=== PATIENT | male | born 1955 | race Caucasian/White ===

== ENCOUNTER 2020-12-10 21:19 | Inpatient (IN) | payer MEDICARE, OTHER ==
[~2020-12-10] VITALS: Ht 172.7 cm; Wt 59.9 kg
[2020-12-10] MEDS ORDERED: FAMO20TA8 PO (21:51)
[2020-12-10] MEDS ORDERED: ARIP5TAB10 PO (21:51)
[2020-12-10] MEDS ORDERED: GABA-532 PO (21:51)
[2020-12-10] MEDS ORDERED: TRAZ-182 PO (21:51)
[2020-12-10] MEDS ORDERED: LORAZEPAM 0.5 MG TABLET PO ONE (22:15)
[2020-12-10] MEDS ORDERED: LORAZEPAM 0.5 MG TABLET ONE (23:36)
[2020-12-11] MEDS ORDERED: MAGNESIUM HYDROXIDE 30 ML LIQUID UDC PO PRN (00:15)
[2020-12-11] MEDS ORDERED: MAG HYDROX/AL HYDROX/SIMETH 30 ML LIQUID UDC PO PRN (00:15)
[2020-12-11] MEDS ORDERED: BLOOD SUGAR DIAGNOSTIC 1 EACH STRIP VI ONE (00:15)
[2020-12-11] MEDS: TEMAZEPAM 7.5 MG CAPSULE PO PRN (00:59)
[2020-12-11] MEDS: CLONAZEPAM 0.5 MG TABLET PO PRN ×4 (00:59→21:42)
[2020-12-11 03:44] LABS: *BILIRUBIN,URIN NEGATIVE (NEGATIVE); *BLOOD, URINE NEGATIVE (NEGATIVE); *CLARITY,URINE CLEAR (CLEAR); *COLOR,URINE YELLOW (YELLOW); *KETONES,URINE NEGATIVE (NEGATIVE); *UROBILINOGEN,URINE 0.2 E.U./dl (NORMAL); LEUKOCYTE ESTERASE ,URINE NEGATIVE (NEGATIVE); NITRITE, URINE NEGATIVE (NEGATIVE); PH,URINE 5.5 (5.0-8.0); UGLUCOSE NEGATIVE (NEGATIVE)
[2020-12-11 07:30] VITALS: BP 107/73
[2020-12-11] MEDS: FAMOTIDINE 20 MG TABLET PO SCH ×2 (08:04→20:50)
[2020-12-11] MEDS: NICOTINE 21 MG/24HR PATCH TD SCH (08:04)
[2020-12-11] MEDS: GABAPENTIN 100 MG CAPSULE PO SCH ×3 (09:59→16:24)
[2020-12-11] MEDS: ARIPIPRAZOLE 5 MG TABLET PO SCH ×2 (10:42→16:25)
[2020-12-11] MEDS: DULOXETINE 30 MG CAPSULE.DR PO SCH (10:42)
[2020-12-11 12:08] VITALS: BP 113/70
[2020-12-11] MEDS: ACETAMINOPHEN 325 MG TABLET PO PRN (12:53)
[2020-12-11 16:00] VITALS: BP 101/64
[2020-12-11 20:00] VITALS: BP 99/68
[2020-12-11] MEDS: TRAZODONE 50 MG TABLET PO SCH (20:50)
[2020-12-12] MEDS: CLONAZEPAM 0.5 MG TABLET PO PRN (05:42)
[2020-12-12 07:30] VITALS: BP 143/81
[2020-12-12] MEDS: ARIPIPRAZOLE 5 MG TABLET PO SCH ×2 (08:43→16:02)
[2020-12-12] MEDS: GABAPENTIN 100 MG CAPSULE PO SCH ×3 (08:43→16:02)
[2020-12-12] MEDS: NICOTINE 21 MG/24HR PATCH TD SCH (08:43)
[2020-12-12] MEDS: FAMOTIDINE 20 MG TABLET PO SCH ×2 (08:43→21:57)
[2020-12-12 09:04] LABS: BILIRUBIN,TOTAL 0.3 mg/dL (0.2-1.0); CREATININE 0.8 mg/dL (0.6-1.3); POTASSIUM 3.8 mmol/L (3.5-5.1); TOTAL PROTEIN, SERUM 9.1 g/dL (6.4-8.2)
[2020-12-12] MEDS: DULOXETINE 30 MG CAPSULE.DR PO SCH (09:18)
[2020-12-12] MEDS: METHADONE HCL 10 MG TABLET PO SCH (10:25)
[2020-12-12 16:00] VITALS: BP 97/58
[2020-12-12 20:00] VITALS: BP 94/63
[2020-12-12] MEDS: TRAZODONE 50 MG TABLET PO SCH (21:57)
[2020-12-13] MEDS: CLONAZEPAM 0.5 MG TABLET PO PRN ×3 (00:23→19:48)
[2020-12-13 08:09] LABS: HEMATOCRIT 36.5 % (36.7-47.1); MEAN CORPUSCULAR HEMOGLOBIN 28.8 uug (23.8-33.4); MEAN CORPUSCULAR VOLUME 87.3 fL (73.0-96.2); PLATELET COUNT (AUTO) 447 K/uL (152-348)
[2020-12-13] MEDS: GABAPENTIN 100 MG CAPSULE PO SCH ×3 (08:22→17:02)
[2020-12-13] MEDS: ARIPIPRAZOLE 5 MG TABLET PO SCH ×2 (08:22→17:02)
[2020-12-13] MEDS: METHADONE HCL 10 MG TABLET PO SCH (08:26)
[2020-12-13] MEDS: FAMOTIDINE 20 MG TABLET PO SCH ×2 (08:26→20:03)
[2020-12-13 08:29] VITALS: BP 124/75
[2020-12-13 08:32] LABS: THYROID STIMULATING HORMONE 2.066 mIU/mL (0.358-3.740)
[2020-12-13] MEDS: NICOTINE 21 MG/24HR PATCH TD SCH (08:33)
[2020-12-13] MEDS ORDERED: DULOXETINE 30 MG CAPSULE.DR PO SCH (09:00)
[2020-12-13 09:05] LABS: BILIRUBIN,TOTAL 0.2 mg/dL (0.2-1.0); CREATININE 0.9 mg/dL (0.6-1.3); MAGNESIUM 2.1 mg/dL (1.8-2.4); PHOSPHOROUS 4.7 mg/dL (2.5-4.9); POTASSIUM 4.2 mmol/L (3.5-5.1); TOTAL PROTEIN, SERUM 8.5 g/dL (6.4-8.2)
[2020-12-13] MEDS: DULOXETINE 20 MG CAPSULE.DR PO SCH (09:27)
[2020-12-13 16:13] VITALS: BP 119/76
[2020-12-13] MEDS: ENSURE ENLIVE (VAN) 240 ML LIQUID PO SCH (17:00)
[2020-12-13 20:00] VITALS: BP 107/68
[2020-12-13] MEDS: TRAZODONE 50 MG TABLET PO SCH (20:03)
[2020-12-14 07:30] VITALS: BP 92/54
[2020-12-14] MEDS: NICOTINE 21 MG/24HR PATCH TD SCH (08:03)
[2020-12-14] MEDS: METHADONE HCL 10 MG TABLET PO SCH (08:05)
[2020-12-14] MEDS: DULOXETINE 20 MG CAPSULE.DR PO SCH (08:07)
[2020-12-14] MEDS: GABAPENTIN 100 MG CAPSULE PO SCH ×3 (08:07→16:42)
[2020-12-14] MEDS: ARIPIPRAZOLE 5 MG TABLET PO SCH ×2 (08:07→16:42)
[2020-12-14] MEDS: FAMOTIDINE 20 MG TABLET PO SCH ×2 (08:08→20:08)
[2020-12-14] MEDS: ASPIRIN EC 81 MG TABLET.DR PO SCH (09:04)
[2020-12-14] MEDS: ENSURE ENLIVE (VAN) 240 ML LIQUID PO SCH ×3 (09:08→18:34)
[2020-12-14 15:15] VITALS: BP 121/94
[2020-12-14] MEDS: CLONAZEPAM 0.5 MG TABLET PO PRN (15:30)
[2020-12-14 20:06] VITALS: BP 96/61
[2020-12-14] MEDS: TRAZODONE 50 MG TABLET PO SCH (20:08)
[2020-12-15 07:30] VITALS: BP 125/71
[2020-12-15] MEDS: ASPIRIN EC 81 MG TABLET.DR PO SCH (08:12)
[2020-12-15] MEDS: DULOXETINE 30 MG CAPSULE.DR PO SCH (08:13)
[2020-12-15] MEDS: FAMOTIDINE 20 MG TABLET PO SCH ×2 (08:15→21:11)
[2020-12-15] MEDS: ARIPIPRAZOLE 5 MG TABLET PO SCH ×2 (08:15→17:18)
[2020-12-15] MEDS: METHADONE HCL 10 MG TABLET PO SCH (08:15)
[2020-12-15] MEDS: GABAPENTIN 100 MG CAPSULE PO SCH ×3 (08:15→17:18)
[2020-12-15] MEDS: ENSURE ENLIVE (VAN) 240 ML LIQUID PO SCH ×3 (08:21→17:57)
[2020-12-15] MEDS: NICOTINE 21 MG/24HR PATCH TD SCH (08:22)
[2020-12-15] MEDS ORDERED: DULOXETINE 20 MG CAPSULE.DR PO SCH (09:00)
[2020-12-15] MEDS: CLONAZEPAM 0.5 MG TABLET PO PRN (13:42)
[2020-12-15 16:00] VITALS: BP 111/57
[2020-12-15 19:35] LABS: *BILIRUBIN,URIN NEGATIVE (NEGATIVE); *BLOOD, URINE NEGATIVE (NEGATIVE); *CLARITY,URINE CLEAR (CLEAR); *COLOR,URINE YELLOW (YELLOW); *KETONES,URINE NEGATIVE (NEGATIVE); *UROBILINOGEN,URINE 0.2 E.U./dl (NORMAL); LEUKOCYTE ESTERASE ,URINE NEGATIVE (NEGATIVE); NITRITE, URINE NEGATIVE (NEGATIVE); UGLUCOSE NEGATIVE (NEGATIVE)
[2020-12-15 20:13] VITALS: BP 103/62
[2020-12-15] MEDS: TRAZODONE 50 MG TABLET PO SCH (21:11)
[2020-12-16] MEDS: CLONAZEPAM 0.5 MG TABLET PO PRN (05:34)
[2020-12-16] MEDS: ACETAMINOPHEN 325 MG TABLET PO PRN (05:34)
[2020-12-16 07:51] VITALS: BP 134/86
[2020-12-16] MEDS: NICOTINE 21 MG/24HR PATCH TD SCH (09:02)
[2020-12-16] MEDS: GABAPENTIN 100 MG CAPSULE PO SCH ×3 (09:05→17:29)
[2020-12-16] MEDS: METHADONE HCL 10 MG TABLET PO SCH (09:05)
[2020-12-16] MEDS: ARIPIPRAZOLE 5 MG TABLET PO SCH ×2 (09:05→17:29)
[2020-12-16] MEDS: FAMOTIDINE 20 MG TABLET PO SCH ×2 (09:05→20:23)
[2020-12-16] MEDS: ASPIRIN EC 81 MG TABLET.DR PO SCH (09:05)
[2020-12-16] MEDS: ENSURE ENLIVE (VAN) 240 ML LIQUID PO SCH ×3 (09:06→17:28)
[2020-12-16] MEDS: DULOXETINE 30 MG CAPSULE.DR PO SCH (09:39)
[2020-12-16 16:10] VITALS: BP 128/75
[2020-12-16 20:00] VITALS: BP 96/65
[2020-12-16] MEDS: TRAZODONE 50 MG TABLET PO SCH (20:23)
[2020-12-17 07:30] VITALS: BP 106/96
[2020-12-17] MEDS: DULOXETINE 30 MG CAPSULE.DR PO SCH (08:23)
[2020-12-17] MEDS: ENSURE ENLIVE (VAN) 240 ML LIQUID PO SCH ×3 (08:23→17:00)
[2020-12-17] MEDS: ASPIRIN EC 81 MG TABLET.DR PO SCH (08:23)
[2020-12-17] MEDS: ARIPIPRAZOLE 5 MG TABLET PO SCH ×2 (08:23→17:00)
[2020-12-17] MEDS: GABAPENTIN 100 MG CAPSULE PO SCH ×3 (08:23→17:00)
[2020-12-17] MEDS: FAMOTIDINE 20 MG TABLET PO SCH ×2 (08:26→20:43)
[2020-12-17] MEDS: METHADONE HCL 10 MG TABLET PO SCH (08:26)
[2020-12-17] MEDS: NICOTINE 21 MG/24HR PATCH TD SCH (08:26)
[2020-12-17 16:00] VITALS: BP 110/72
[2020-12-17] MEDS: CLONAZEPAM 0.5 MG TABLET PO PRN (16:31)
[2020-12-17 20:06] VITALS: BP 108/69
[2020-12-17] MEDS: TRAZODONE 50 MG TABLET PO SCH (20:43)
[2020-12-18] MEDS: TEMAZEPAM 7.5 MG CAPSULE PO PRN (01:31)
[2020-12-18] MEDS: ACETAMINOPHEN 325 MG TABLET PO PRN (01:31)
[2020-12-18 07:38] VITALS: BP 104/59
[2020-12-18] MEDS: NICOTINE 21 MG/24HR PATCH TD SCH (08:48)
[2020-12-18] MEDS: FAMOTIDINE 20 MG TABLET PO SCH ×2 (08:49→20:57)
[2020-12-18] MEDS: GABAPENTIN 100 MG CAPSULE PO SCH ×3 (08:49→16:55)
[2020-12-18] MEDS: DULOXETINE 30 MG CAPSULE.DR PO SCH (08:49)
[2020-12-18] MEDS: METHADONE HCL 10 MG TABLET PO SCH (08:49)
[2020-12-18] MEDS: ARIPIPRAZOLE 5 MG TABLET PO SCH ×2 (08:49→16:56)
[2020-12-18] MEDS: ASPIRIN EC 81 MG TABLET.DR PO SCH (08:49)
[2020-12-18] MEDS: ENSURE ENLIVE (VAN) 240 ML LIQUID PO SCH ×3 (08:50→16:56)
[2020-12-18] MEDS: CLONAZEPAM 0.5 MG TABLET PO PRN ×2 (09:41→20:57)
[2020-12-18] MEDS ORDERED: GUAIFENESIN/DEXTROMETHORPHAN 5 ML UDC PO PRN (11:00)
[2020-12-18 16:09] VITALS: BP 99/57
[2020-12-18 20:07] VITALS: BP 99/53
[2020-12-18] MEDS: TRAZODONE 50 MG TABLET PO SCH (20:57)
[2020-12-19 07:58] VITALS: BP 112/58
[2020-12-19] MEDS: NICOTINE 21 MG/24HR PATCH TD SCH (08:24)
[2020-12-19] MEDS: GABAPENTIN 100 MG CAPSULE PO SCH ×3 (08:25→17:27)
[2020-12-19] MEDS: METHADONE HCL 10 MG TABLET PO SCH (08:25)
[2020-12-19] MEDS: DULOXETINE 30 MG CAPSULE.DR PO SCH (08:25)
[2020-12-19] MEDS: ARIPIPRAZOLE 5 MG TABLET PO SCH ×2 (08:25→17:27)
[2020-12-19] MEDS: FAMOTIDINE 20 MG TABLET PO SCH ×2 (08:25→20:11)
[2020-12-19] MEDS: ASPIRIN EC 81 MG TABLET.DR PO SCH (08:25)
[2020-12-19] MEDS: ENSURE ENLIVE (VAN) 240 ML LIQUID PO SCH ×3 (08:26→17:27)
[2020-12-19] MEDS: CLONAZEPAM 0.5 MG TABLET PO PRN (13:11)
[2020-12-19 16:43] VITALS: BP 122/82
[2020-12-19 20:06] VITALS: BP 118/62
[2020-12-19] MEDS: TRAZODONE 50 MG TABLET PO SCH (20:11)
[2020-12-19] MEDS: NYSTATIN CREAM 30 GM TUBE TOP SCH (20:11)
[2020-12-20] MEDS: CLONAZEPAM 0.5 MG TABLET PO PRN ×2 (01:33→08:17)
[2020-12-20 07:42] VITALS: BP 125/61
[2020-12-20] MEDS: ARIPIPRAZOLE 5 MG TABLET PO SCH ×2 (09:00→21:49)
[2020-12-20] MEDS: NICOTINE 21 MG/24HR PATCH TD SCH (09:46)
[2020-12-20] MEDS: GABAPENTIN 100 MG CAPSULE PO SCH ×3 (09:46→17:01)
[2020-12-20] MEDS: ASPIRIN EC 81 MG TABLET.DR PO SCH (09:46)
[2020-12-20] MEDS: DULOXETINE 30 MG CAPSULE.DR PO SCH (09:46)
[2020-12-20] MEDS: FAMOTIDINE 20 MG TABLET PO SCH ×2 (09:46→21:49)
[2020-12-20] MEDS: ENSURE ENLIVE (VAN) 240 ML LIQUID PO SCH ×3 (09:47→17:00)
[2020-12-20] MEDS: METHADONE HCL 10 MG TABLET PO SCH (09:47)
[2020-12-20] MEDS: NYSTATIN CREAM 30 GM TUBE TOP SCH ×2 (09:48→21:53)
[2020-12-20 15:47] VITALS: BP 123/52
[2020-12-20 20:50] VITALS: BP 114/53
[2020-12-20] MEDS: TRAZODONE 50 MG TABLET PO SCH (21:49)
[2020-12-21 08:00] VITALS: BP 102/73
[2020-12-21] MEDS: NICOTINE 21 MG/24HR PATCH TD SCH (08:41)
[2020-12-21] MEDS: METHADONE HCL 10 MG TABLET PO SCH (08:42)
[2020-12-21] MEDS: ASPIRIN EC 81 MG TABLET.DR PO SCH (08:42)
[2020-12-21] MEDS: GABAPENTIN 100 MG CAPSULE PO SCH ×3 (08:42→16:54)
[2020-12-21] MEDS: DULOXETINE 30 MG CAPSULE.DR PO SCH (08:42)
[2020-12-21] MEDS: NYSTATIN CREAM 30 GM TUBE TOP SCH ×2 (08:42→20:57)
[2020-12-21] MEDS: FAMOTIDINE 20 MG TABLET PO SCH ×2 (08:42→20:51)
[2020-12-21] MEDS: ENSURE ENLIVE (VAN) 240 ML LIQUID PO SCH ×3 (08:43→16:54)
[2020-12-21 16:00] VITALS: BP 97/60
[2020-12-21 20:03] VITALS: BP 105/63
[2020-12-21] MEDS: ARIPIPRAZOLE 5 MG TABLET PO SCH (20:50)
[2020-12-21] MEDS: TRAZODONE 50 MG TABLET PO SCH (20:50)
[2020-12-22] MEDS: ACETAMINOPHEN 325 MG TABLET PO PRN (06:31)
[2020-12-22] MEDS: CLONAZEPAM 0.5 MG TABLET PO PRN (06:31)
[2020-12-22 07:30] VITALS: BP 113/62
[2020-12-22] MEDS: METHADONE HCL 10 MG TABLET PO SCH (09:21)
[2020-12-22] MEDS: ASPIRIN EC 81 MG TABLET.DR PO SCH (09:21)
[2020-12-22] MEDS: DULOXETINE 30 MG CAPSULE.DR PO SCH (09:22)
[2020-12-22] MEDS: ENSURE ENLIVE (VAN) 240 ML LIQUID PO SCH ×2 (09:22→13:54)
[2020-12-22] MEDS: NYSTATIN CREAM 30 GM TUBE TOP SCH (09:22)
[2020-12-22] MEDS: NICOTINE 21 MG/24HR PATCH TD SCH (09:22)
[2020-12-22] MEDS: FAMOTIDINE 20 MG TABLET PO SCH (09:22)
[2020-12-22] MEDS: GABAPENTIN 100 MG CAPSULE PO SCH ×2 (09:22→13:00)
== END 2020-12-22 14:00 | DRG 885 ==
LOC: ER 21:22 → EDBD 21:22 → GPS 23:44
PROVIDERS: ADMIT Psychiatry & Neurology Psychiatry; ATTEND Internal Medicine
DX: F33.2 Major depressive disorder, recurrent severe without psychotic features (principal); E44.0 Moderate protein-calorie malnutrition; J98.11 Atelectasis; Z59.00 Homelessness unspecified; G89.4 Chronic pain syndrome; F17.210 Nicotine dependence, cigarettes, uncomplicated; B36.9 Superficial mycosis, unspecified; Z20.822 Contact with and (suspected) exposure to COVID-19; Z79.82 Long term (current) use of aspirin; F41.9 Anxiety disorder, unspecified; D64.9 Anemia, unspecified; I25.10 Atherosclerotic heart disease of native coronary artery without angina pectoris; J44.9 Chronic obstructive pulmonary disease, unspecified; Z68.20 Body mass index [BMI] 20.0-20.9, adult; E88.09 Other disorders of plasma-protein metabolism, not elsewhere classified; R93.1 Abnormal findings on diagnostic imaging of heart and coronary circulation; F41.0 Panic disorder [episodic paroxysmal anxiety]; Z79.899 Other long term (current) drug therapy; T40.3X1 Poisoning by methadone, accidental (unintentional)
CPT/HCPCS: 36415; 71045; 83735; 84100; 84443; 85025; 87086; 97161; A4663

== ENCOUNTER 2021-10-06 15:45 | Inpatient (IN) | payer MEDICARE, OTHER ==
[~2021-10-06] VITALS: Ht 170.2 cm; Wt 68.0 kg
[~2021-10-06 15:45] MED LIST: FAMO20TA8 PO; GABA-532 PO
[2021-10-06 16:49] LABS: HEMATOCRIT 40.4 % (36.7-47.1); MEAN CORPUSCULAR HEMOGLOBIN 28.6 uug (23.8-33.4); PLATELET COUNT (AUTO) 234 K/uL (152-348)
[2021-10-06 16:58] LABS: CARBON DIOXIDE 34 mmol/L (21-32); CHLORIDE 101 mmol/L (98-107); CREATININE 0.8 mg/dL (0.6-1.3); GLUCOSE 112 mg/dL (74-106); POTASSIUM 4.6 mmol/L (3.5-5.1); UREA NITROGEN, BLOOD 14 mg/dL (7-18)
[2021-10-06] MEDS ORDERED: IV NS 1000 ML 1,000 ML IV ONE (17:00)
[2021-10-06] MEDS ORDERED: MORPHINE SULFATE 2 MG/1 ML DISP.SYRIN IV ONE (17:00)
[2021-10-06] MEDS ORDERED: ONDANSETRON 4 MG/2 ML VIAL IV ONE (17:00)
[2021-10-06] MEDS ORDERED: ONDANSETRON 4 MG/2 ML VIAL ONE (17:02)
[2021-10-06] MEDS ORDERED: MORPHINE SULFATE 2 MG/1 ML DISP.SYRIN ONE (17:03)
[2021-10-06 17:11] LABS: ALANINE AMINOTRANSFERASE 26 U/L (16-63); ALKALINE PHOSPHATASE 46 U/L (50-136); ASPARTATE AMINOTRANSFERASE 18 U/L (15-37); BILIRUBIN,DIRECT 0.1 mg/dL (0.0-0.2); BILIRUBIN,TOTAL 0.3 mg/dL (0.2-1.0)
--- NOTE | 2021-10-06 17:29 | NUR ---
"Plan to admit" per Dr Guevara. ER registration staff Clara notified.
[2021-10-06] MEDS ORDERED: IPRATROPIUM BROMIDE 0.5 MG/2.5 ML NEBU NEB ONE (17:30)
[2021-10-06] MEDS ORDERED: IPRATROPIUM BROMIDE 0.5 MG/2.5 ML NEBU ONE (17:30)
[2021-10-06] MEDS ORDERED: ALBUTEROL SULFATE 2.5 MG/3 ML NEBU NEB ONE (17:30)
[2021-10-06] MEDS ORDERED: ALBUTEROL SULFATE 2.5 MG/3 ML NEBU ONE (17:30)
[2021-10-06] MEDS ORDERED: ALBUTEROL SULFATE 8 GM HFA.AER.AD IH PRN (17:45)
[2021-10-06] MEDS ORDERED: MAGNESIUM HYDROXIDE 30 ML LIQUID UDC PO PRN (17:45)
[2021-10-06] MEDS ORDERED: ONDANSETRON 4 MG/2 ML VIAL IV PRN (17:45)
[2021-10-06] MEDS ORDERED: REMEDY ESSENTIAL ZINC PASTE 113 GM TP PRN (17:45)
[2021-10-06] MEDS ORDERED: ACETAMINOPHEN 325 MG TABLET PO PRN (17:45)
--- NOTE | 2021-10-06 18:06 | NUR ---
Patient left ER in stable condition with nursing order takers supervisor Karla. Nurse Kanika was updated as well.
[2021-10-06] MEDS ORDERED: ALBUTEROL SULFATE 2.5 MG/3 ML NEBU NEB PRN (18:15)
--- NOTE | 2021-10-06 18:29 | NUR ---
66 YEAR OLD MALE RECEIVED TO ROOM 312 FOR FAILURE TO THRIVE ,PT IS AXOX3 .CALL LIGHT WITH IN REACH . NOTIFIED FOR THE ADMISSION
[2021-10-06] MEDS ORDERED: HYDROCODONE/APAP 5-325MG TABLET PO ONE (18:30)
[2021-10-06] MEDS: predniSONE 20 MG TABLET PO SCH (18:35)
[2021-10-06 18:39] VITALS: BP 104/54
[2021-10-06 20:00] VITALS: BP 99/64
[2021-10-06] MEDS: GABAPENTIN 100 MG CAPSULE PO SCH (20:18)
[2021-10-06] MEDS: FAMOTIDINE 20 MG TABLET PO SCH (20:18)
[2021-10-06] MEDS: IV NS 1000 ML 1,000 ML IV PRN (22:24)
[2021-10-07 04:00] VITALS: BP 115/59
[2021-10-07 07:24] LABS: MEAN CORPUSCULAR HEMOGLOBIN 28.5 uug (23.8-33.4); MEAN CORPUSCULAR VOLUME 85.4 fL (73.0-96.2); PLATELET COUNT (AUTO) 250 K/uL (152-348)
[2021-10-07 07:40] LABS: CREATININE 0.8 mg/dL (0.6-1.3); MAGNESIUM 1.9 mg/dL (1.8-2.4); PHOSPHOROUS 4.1 mg/dL (2.5-4.9); POTASSIUM 4.8 mmol/L (3.5-5.1)
[2021-10-07] MEDS: GABAPENTIN 100 MG CAPSULE PO SCH ×3 (08:55→17:59)
[2021-10-07] MEDS: FAMOTIDINE 20 MG TABLET PO SCH ×2 (08:55→17:59)
[2021-10-07] MEDS: predniSONE 20 MG TABLET PO SCH (08:56)
[2021-10-07] MEDS ORDERED: CLONAZEPAM 1 MG TABLET PO PRN (11:15)
[2021-10-07] MEDS ORDERED: METHADONE HCL 10 MG TABLET PO SCH (11:30)
[2021-10-07 12:06] VITALS: BP 109/62
[2021-10-07] MEDS: risperiDONE-M 0.5 MG TAB.RAPDIS PO SCH ×2 (12:18→23:00)
[2021-10-07] MEDS: CLONAZEPAM 1 MG TABLET PO PRN (12:18)
[2021-10-07] MEDS: METHADONE ORAL CONCENTRATE SOL 10 MG/ML ORAL.CONC PO SCH (12:18)
[2021-10-07] MEDS ORDERED: ENOX40DI SQ (12:27)
[2021-10-07] MEDS ORDERED: BENZ-13 PO (12:27)
[2021-10-07] MEDS ORDERED: [UNRECOGNIZED DRUG - CODE] PO (12:27)
[2021-10-07] MEDS ORDERED: DULO30CA2 PO (12:27)
[2021-10-07] MEDS ORDERED: METH-817 PO (12:27)
[2021-10-07] MEDS ORDERED: PANT40TA49 PO (12:27)
[2021-10-07] MEDS ORDERED: CLON1TAB12 PO (12:27)
[2021-10-07] MEDS ORDERED: RISP1TAB7 PO (12:27)
[2021-10-07 16:25] VITALS: BP 122/66
[2021-10-07 20:28] VITALS: BP 107/56
--- NOTE | 2021-10-07 23:45 | NUR ---
PATIENT AWAKE IN BED, STATING THAT HE IS UNABLE TO URINATE. CHECKED BLADDER WITH SCANNER AND RECEIVED RETENTION OF 475cc. CALLED OUT TO ADELE WILLS NP FOR FURTHER ORDERS. RECEIVED ORDER TO INSERT YAN.
--- NOTE | 2021-10-08 00:15 | NUR ---
CALLED BACK OUT TO JENAE ANGULO TO NOTIFY HIM THAT YAN WAS UNABLE TO BE INSERTED. RESISTANCE NOTED. PATIENT DID END UP URINATING IN DIAPER. RECHECKED WITH BLADDER SCANNER AND RECEIVED RETENTION OF 200cc. NOTIFIED AVIATION PROJECT MANAGER WILL CONTINUE TO MONITOR AND ASSESS.
[2021-10-08 04:00] VITALS: BP 132/69
--- NOTE | 2021-10-08 04:00 | NUR ---
PATIENT AWAKE IN BED. CHECKED BLADDER WITH SCANNER, RECEIVED 347cc. PATIENT VOIDED 300cc IN URINAL. ALL NEEDS ATTENDED, WILL CONTINUE TO MONITOR AND ASSESS.
[2021-10-08] MEDS: IV NS 1000 ML 1,000 ML IV PRN (04:17)
[2021-10-08] MEDS: risperiDONE-M 0.5 MG TAB.RAPDIS PO SCH ×2 (09:04→20:54)
[2021-10-08] MEDS: CLONAZEPAM 1 MG TABLET PO PRN (09:04)
[2021-10-08] MEDS: FAMOTIDINE 20 MG TABLET PO SCH ×2 (09:05→17:02)
[2021-10-08] MEDS: GABAPENTIN 100 MG CAPSULE PO SCH ×3 (09:05→17:02)
[2021-10-08] MEDS: ASPIRIN EC 81 MG TABLET.DR PO SCH (09:06)
[2021-10-08] MEDS: predniSONE 20 MG TABLET PO SCH (09:06)
[2021-10-08] MEDS: METHADONE ORAL CONCENTRATE SOL 10 MG/ML ORAL.CONC PO SCH (09:15)
[2021-10-08 11:41] VITALS: BP 128/93
[2021-10-08 15:20] VITALS: BP 142/65
[2021-10-08 20:11] VITALS: BP 138/73
--- NOTE | 2021-10-08 20:30 | NUR ---
Pt comfortable in bed. Pt has IV ML on UA 18 g intact and patent running NS at 50cc/hr. On 2LPM via NC. All needs attended. Will continue to monitor.
[2021-10-09 04:18] VITALS: BP 140/59
[2021-10-09] MEDS: IV NS 1000 ML 1,000 ML IV PRN (04:44)
--- NOTE | 2021-10-09 08:00 | NUR ---
Pt alert and oriented x 4. Pt is in no acute distress. Left heal floated Mepilex reapplied. Pt is in no acute distress. Call light is within reach.
[2021-10-09] MEDS: METHADONE ORAL CONCENTRATE SOL 10 MG/ML ORAL.CONC PO SCH (08:54)
[2021-10-09] MEDS: risperiDONE-M 0.5 MG TAB.RAPDIS PO SCH ×2 (08:55→20:33)
[2021-10-09] MEDS: ASPIRIN EC 81 MG TABLET.DR PO SCH (08:56)
[2021-10-09] MEDS: predniSONE 20 MG TABLET PO SCH (08:56)
[2021-10-09] MEDS: GABAPENTIN 100 MG CAPSULE PO SCH ×3 (08:56→17:14)
[2021-10-09] MEDS: FAMOTIDINE 20 MG TABLET PO SCH ×2 (08:56→17:14)
--- NOTE | 2021-10-09 09:00 | NUR ---
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
[2021-10-09 11:17] VITALS: BP 110/63
[2021-10-09] MEDS: PROTEIN SUPPLEMENT (PROSTAT) 30 ML LIQUID PO SCH ×2 (13:55→17:00)
[2021-10-09] MEDS: GLUCERNA SHAKE 237 ML CAN PO SCH ×2 (13:55→17:00)
[2021-10-09 15:11] VITALS: BP 109/61
[2021-10-09 20:12] VITALS: BP 129/67
[2021-10-09] MEDS: CLONAZEPAM 1 MG TABLET PO PRN (21:15)
[2021-10-10] MEDS: IV NS 1000 ML 1,000 ML IV PRN (01:36)
[2021-10-10 04:15] VITALS: BP 144/77
[2021-10-10] MEDS: ASPIRIN EC 81 MG TABLET.DR PO SCH (07:52)
[2021-10-10] MEDS: FAMOTIDINE 20 MG TABLET PO SCH (07:52)
[2021-10-10] MEDS: CLONAZEPAM 1 MG TABLET PO PRN (07:52)
[2021-10-10] MEDS: GLUCERNA SHAKE 237 ML CAN PO SCH (07:53)
[2021-10-10] MEDS: GABAPENTIN 100 MG CAPSULE PO SCH (07:53)
[2021-10-10] MEDS: predniSONE 20 MG TABLET PO SCH (07:53)
[2021-10-10] MEDS: risperiDONE-M 0.5 MG TAB.RAPDIS PO SCH (07:56)
[2021-10-10] MEDS: PROTEIN SUPPLEMENT (PROSTAT) 30 ML LIQUID PO SCH (07:57)
[2021-10-10] MEDS: METHADONE ORAL CONCENTRATE SOL 10 MG/ML ORAL.CONC PO SCH (09:38)
--- NOTE | 2021-10-10 09:39 | NUR ---
Report given To Juan WADDELL of [facility]. Updated picture taken on left heel. Pt more calm after Klonopin given secondary to pt c/o anxiety. 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 PT is in no acute distress upon discharge.
== END 2021-10-10 09:40 | DRG 189 ==
LOC: ER 15:45 → TELE3 18:04 → MEDSURG3 18:25
PROVIDERS: ADMIT Internal Medicine; ATTEND Internal Medicine
PROC: 05H533Z Insertion of Infusion Device into Right Subclavian Vein, Percutaneous Approach (ICD-10-PCS; principal; 2021-10-06)
PROC: B546ZZA Ultrasonography of Right Subclavian Vein, Guidance (ICD-10-PCS; 2021-10-06)
DX: J96.01 Acute respiratory failure with hypoxia (principal); E43 Unspecified severe protein-calorie malnutrition; J44.1 Chronic obstructive pulmonary disease with (acute) exacerbation; L97.428 Non-pressure chronic ulcer of left heel and midfoot with other specified severity; L97.418 Non-pressure chronic ulcer of right heel and midfoot with other specified severity; R62.7 Adult failure to thrive; R00.1 Bradycardia, unspecified; Z68.23 Body mass index [BMI] 23.0-23.9, adult; E88.09 Other disorders of plasma-protein metabolism, not elsewhere classified; F31.9 Bipolar disorder, unspecified; G62.9 Polyneuropathy, unspecified; G89.4 Chronic pain syndrome; Z87.891 Personal history of nicotine dependence; R53.1 Weakness; M79.672 Pain in left foot; M79.671 Pain in right foot; Z20.822 Contact with and (suspected) exposure to COVID-19
CPT/HCPCS: 36415; 71045; 83735; 84100; 84484; 85025; 85730; 93005; 93307; A4663; A6209; A6213; G0378; J2270; J2405; J3590; J7040; J7070; J7512